=== PATIENT | male | born 1975 | race Caucasian/White ===

== ENCOUNTER 2017-09-13 14:03 | Emergency (ER) | payer MEDICAID ==
[~2017-09-13] VITALS: Ht 167.6 cm; Wt 113.0 kg
[2017-09-13 14:09] VITALS: BP 144/98
[2017-09-13] MEDS ORDERED: BACITRACIN ZINC OINT UDPKT TOP ONE (14:30)
== END 2017-09-13 15:26 | disposition home or self-care (01) ==
LOC: ER 14:12
DX: S61.212A Laceration without foreign body of right middle finger without damage to nail, initial encounter (principal); F12.10 Cannabis abuse, uncomplicated; W22.8XXA Striking against or struck by other objects, initial encounter; Y93.89 Activity, other specified; Y92.89 Other specified places as the place of occurrence of the external cause; Y99.8 Other external cause status
CPT/HCPCS: 73140; 99284

== ENCOUNTER 2022-01-09 19:15 | Emergency (ER) | payer MEDICAID ==
[~2022-01-09] VITALS: Ht 167.6 cm; Wt 91.0 kg
[2022-01-09] MEDS ORDERED: ASPIRIN 325MG TABLET PO ONE (20:00)
[2022-01-09 20:01] LABS: HEMATOCRIT. 36.2 % (42.0-52.0); MEAN CORPUSCULAR HEMOGLOBIN 26.7 pg (28.0-32.0); MEAN CORPUSCULAR VOLUME 80.4 fL (80.0-94.0); MEAN PLATELET VOLUME 8.2 fl (7.4-10.4); PLATELET 401 x1000/uL (130-400); RED CELL DISTRIBUTION WIDTH 14.1 % (11.6-14.6)
[2022-01-09 20:46] LABS: CHLORIDE 101 mEq/L (98-107)
[2022-01-09 21:08] LABS: PLATELET ESTIMATE NORMAL
[2022-01-10 00:55] VITALS: BP 150/81
[2022-01-10 01:09] LABS: *AMPHETAMINES SCREEN URINE NEGATIVE (NEGATIVE); *BARBITURATES SCREEN URINE NEGATIVE (NEGATIVE)
[2022-01-10 01:10] LABS: *BENZODIAZEPINES SCREEN URINE PRESUMTIVE POSITIVE (NEGATIVE); *COCAINE SCREEN URINE NEGATIVE (NEGATIVE); CANNABINOID URINE SCREEN PRESUMTIVE POSITIVE (NEGATIVE); METHADONE URINE SCREEN NEGATIVE (NEGATIVE); OPIATES URINE SCREEN NEGATIVE (NEGATIVE); PHENCYCLIDINE URINE SCREEN NEGATIVE (NEGATIVE)
== END 2022-01-10 01:13 | disposition left against medical advice (07) ==
LOC: ER 19:15 → EDBEDREQ 23:40 → EDBEDREQTM 23:40 → ER 01-10 01:13 → CANBEDREQ 01-10 16:34
DX: R07.89 Other chest pain (principal); F15.10 Other stimulant abuse, uncomplicated; F12.10 Cannabis abuse, uncomplicated
CPT/HCPCS: 36415; 71045; 80053; 80305; 83880; 84484; 85025; 87426; 93005; 99285